=== PATIENT | female | born 1965 | race Caucasian/White ===

== ENCOUNTER 2016-05-01 19:37 | Observation (INO) ==
[2016-05-01 20:44] LABS: Immature Platelets 2.3 % (1.1-6.1); Mean Platelet Volume 8.8 fL (9.4-12.4); Segmented Neutrophils % 59.4 %
[2016-05-01 20:48] LABS: Basophils # 0.1 K/mcL (0.0-0.2); Basophils % 0.8 %; Eosinophils # 0.5 K/mcL (0.0-0.6); Hematocrit 36.2 % (35.3-44.9); Hemoglobin 12.2 g/dL (11.5-15.4); Immature Granulocytes % 0.3 % (0-4); Lymphocytes # 2.5 K/mcL (0.6-4.6); Lymphocytes % 27.2 %; Mean Corpuscular HGB Conc 33.7 g/dL (31.6-35.5); Mean Corpuscular Hemoglobin 32.7 pg (28.0-33.3); Mean Corpuscular Volume 97.1 fL (83.0-100.0); Monocytes # 0.7 K/mcL (0.0-1.3); Monocytes % 7.3 %; Neutrophils # 5.4 K/mcL (1.6-8.9); Platelet Count 309 K/mcL (140-400); Red Blood Count 3.73 M/mcL (3.82-4.97); Red Cell Distribution Width 13.3 % (11.5-14.5)
[2016-05-01 20:51] LABS: INR 1.2; Prothrombin Time 12.6 Seconds (9.4-12.1)
[2016-05-01 20:53] LABS: Activated Partial Thrombo Time 31.2 Seconds (26.0-36.0)
[2016-05-01 21:00] LABS: BUN/Creatinine Ratio 16 (6-26); Blood Urea Nitrogen 10 mg/dL (7-20); Calcium 8.7 mg/dL (8.6-10.8); Carbon Dioxide 24 mEq/L (19-29); Chloride 107 mEq/L (98-109); Glucose 90 mg/dL (70-99); Osmolality,Calculated 289 (280-300); Potassium 3.2 mEq/L (3.5-4.5); Sodium 140 mEq/L (136-145); eGFR For African Americans > 60 (> 60); eGFR For Non-African Americans > 60 (> 60)
[2016-05-01 21:16] LABS: Reactive Lymphocytes Present (Not Present)
[2016-05-01] MEDS: Nitroglycerin 0.4 MG TAB.SUBL SL PRN (21:23)
--- NOTE | 2016-05-01 22:35 | Emergency Department Note ---
Disposition Clinical Impression: Chest pain, rule out acute myocardial infarction Chest pain Qualifiers: Chest pain type: unspecified Qualified Code(s): R07.9 - Chest pain, unspecified Syncope Qualifiers: Syncope type: unspecified Qualified Code(s): R55 - Syncope and collapse Disposition: Admitted As Inpatient Condition: Good Time of Disposition: 22:44 Chest Pain HPI - General Chief Complaint: ED Chest Pain Stated Complaint: [id number] Time Seen by Provider: 05/01/16 20:12 Source: patient, EMS Limitations: no limitations Vital Signs Reviewed: Yes Nursing Notes Reviewed: Yes - History of Present Illness HPI Narrative: 50-year-old female presents with concerns of chest pain. Patient states that she had been feeling weak and fatigued over the past 3 days however prior to arrival she had an acute onset of of syncope at home which was associated with chest pain. After the pain the patient felt significantly weak and fatigued. Patient denies a history of cardiac disease. She does have a family history of early cardiac disease. She is a cigarette smoker and has a history of high blood pressure. Patient states that she was nauseated with the pain. She described being mildly short of breath but denied diaphoresis. Patient was not incontinent of urine and did not bite her tongue. She has no history of seizures in the past. No seizure-like activity seen by a significant other. Severity scale (1-10): 10 - Related Data Home Medications Medication Instructions Recorded Confirmed Buprenorphine HCl/Naloxone HCl 1 film SL BID 12/02/14 12/16/14 [Suboxone 8 mg-2 mg Sl Film] Lisinopril [Zestril] 20 mg PO DAILY 12/02/14 12/16/14 Metoprolol [Lopressor] 25 mg PO DAILY 12/13/14 12/16/14 Aspirin Enteric Coated [Aspirin EC] 81 mg PO DAILY 12/16/14 12/16/14 Fexofenadine/Pseudoephedrine 1 tab PO BID 12/16/14 12/16/14 [Bhakti-D 12 Hour Tablet] Previous Rx's Medication Instructions Recorded Ondansetron ODT [Zofran ODT] 4 mg SL Q6HR #20 tab.rapdis 12/19/14 Allergies Allergy/AdvReac Type Severity Reaction Status Date / Time acetaminophen [From Vicodin] Allergy Hives Verified 12/01/14 23:24 hydrocodone [From Vicodin] Allergy Hives Verified 12/01/14 23:24 naproxen [From Naprosyn] Allergy Hives Verified 12/01/14 23:24 tramadol [From Ultram] Allergy Hives Verified 12/01/14 23:24 muscle relaxers Allergy Hives Uncoded 12/01/14 23:24 All systems ED: reviewed and negative except as stated. Constitutional: Denies: fever Cardiovascular: Reports: chest pain, palpitations, syncope. Denies: dyspnea on exertion, orthopnea Respiratory: Denies: cough, dyspnea, wheezes, hemoptysis Gastrointestinal: Reports: nausea. Denies: abdominal pain, vomiting Genitourinary: Denies: urgency, dysuria Musculoskeletal: Denies: back pain, neck pain Integumentary: Denies: rash, abrasion Neurological: Denies: headache, weakness Psychiatric: Denies: anxiety, depression Chest Pain PMH - Past Medical History Medical history: Reports: CVA, GERD, hypertension, TIA Surgical history: Reports: appendectomy, , cholecystectomy Psychiatric history: Reports: no psych history AIR CARRIER INSPECTOR history: Reports: no AIR CARRIER INSPECTOR history - Social History Smoking Status: Current every day smoker Alcohol use: Reports: none Drug use: Reports: none Physical Exam General: Alert and in no acute distress Skin: Warm, dry, intact Head: Normocephalic and atraumatic Neck: Supple, trachea midline and no tenderness Cardiovascular: RRR, no murmur, normal perfusion Respiratory: CTAB, no wheezing, cough, or respiratory distress Musculoskeletal: Normal strength, no tenderness, swelling or deformity GI: Soft, nontender, nondistended. Bowel sounds present Neuro: A&O to person, place, time and situation. No focal deficits noted on exam Psychiatric: cooperative and appropriate mood and affect. - General Limitations: no limitations General appearance: alert, in no apparent distress Course Vital Signs Temperature 100.2 F H 05/01/16 19:39 Pulse Rate 93 05/01/16 19:39 Respiratory Rate 22 05/01/16 19:39 Blood Pressure 181/103 05/01/16 19:39 O2 Sat by Pulse Oximetry 97 05/01/16 19:39 Temperature 97.6 F 05/01/16 23:27 Pulse Rate 77 05/01/16 23:27 Respiratory Rate 14 05/01/16 23:27 Blood Pressure 156/88 05/01/16 23:27 O2 Sat by Pulse Oximetry 95 05/01/16 23:27 Oxygen Delivery Oxygen Delivery Room Air Chest Pain - Medical Records Medical records reviewed: Yes I reviewed the patient's medical records. - Lab Data Lab results reviewed: Yes I reviewed the patient's lab results. Result diagrams: 05/01/16 20:37 05/01/16 20:37 Lab Results 05/01/16 05/01/16 05/01/16 Range/Units 20:37 20:37 20:37 WBC 9.1 (4.3-11.1) K/mcL RBC 3.73 L (3.82-4.97) M/mcL Hgb 12.2 (11.5-15.4) g/dL Hct 36.2 (35.3-44.9) % MCV 97.1 (83.0-100.0) fL MCH 32.7 (28.0-33.3) pg MCHC 33.7 (31.6-35.5) g/dL RDW 13.3 (11.5-14.5) % Plt Count 309 (140-400) K/mcL MPV 8.8 L (9.4-12.4) fL Immature Gran % 0.3 (0-4) % Seg Neutrophils % 59.4 % Lymphocytes % 27.2 % Monocytes % 7.3 % Eosinophils % 5.0 % Basophils % 0.8 % Neutrophils # 5.4 (1.6-8.9) K/mcL Lymphocytes # 2.5 (0.6-4.6) K/mcL Monocytes # 0.7 (0.0-1.3) K/mcL Eosinophils # 0.5 (0.0-0.6) K/mcL Basophils # 0.1 (0.0-0.2) K/mcL Reactive Lymphocytes Present A (Not Present) Immature Plt Fraction 2.3 (1.1-6.1) % PT 12.6 H (9.4-12.1) Seconds INR 1.2 APTT 31.2 (26.0-36.0) Seconds D-Dimer 460 (0-500) ng/mLFEU Sodium 140 (136-145) mEq/L Potassium 3.2 L (3.5-4.5) mEq/L Chloride 107 (98-109) mEq/L Carbon Dioxide 24 (19-29) mEq/L BUN 10 (7-20) mg/dL Creatinine 0.63 (0.57-1.11) mg/dL Est GFR ( Amer) > 60 (> 60) Est GFR (Non-Af Amer) > 60 (> 60) BUN/Creatinine Ratio 16 (6-26) Glucose 90 (70-99) mg/dL Calculated Osmolality 289 (280-300) Calcium 8.7 (8.6-10.8) mg/dL Troponin I (0-0.03) ng/mL 05/01/16 Range/Units 20:37 WBC (4.3-11.1) K/mcL RBC (3.82-4.97) M/mcL Hgb (11.5-15.4) g/dL Hct (35.3-44.9) % MCV (83.0-100.0) fL MCH (28.0-33.3) pg MCHC (31.6-35.5) g/dL RDW (11.5-14.5) % Plt Count (140-400) K/mcL MPV (9.4-12.4) fL Immature Gran % (0-4) % Seg Neutrophils % % Lymphocytes % % Monocytes % % Eosinophils % % Basophils % % Neutrophils # (1.6-8.9) K/mcL Lymphocytes # (0.6-4.6) K/mcL Monocytes # (0.0-1.3) K/mcL Eosinophils # (0.0-0.6) K/mcL Basophils # (0.0-0.2) K/mcL Reactive Lymphocytes (Not Present) Immature Plt Fraction (1.1-6.1) % PT (9.4-12.1) Seconds INR APTT (26.0-36.0) Seconds D-Dimer (0-500) ng/mLFEU Sodium (136-145) mEq/L Potassium (3.5-4.5) mEq/L Chloride (98-109) mEq/L Carbon Dioxide (19-29) mEq/L BUN (7-20) mg/dL Creatinine (0.57-1.11) mg/dL Est GFR ( Amer) (> 60) Est GFR (Non-Af Amer) (> 60) BUN/Creatinine Ratio (6-26) Glucose (70-99) mg/dL Calculated Osmolality (280-300) Calcium (8.6-10.8) mg/dL Troponin I 0.01 (0-0.03) ng/mL - Radiology Data Radiology results reviewed: Yes I reviewed the patient's radiology results. - EKG Data EKG attestation: Yes I reviewed and interpreted this EKG. EKG results narrative: ECG - interpreted by ED physician. Rate 88, normal sinus rhythm, no STEMI, OK, QT intervals, and QRS within normal limits Heart Score - Score History: Moderately Suspicious EKG: Normal Age: 45-65 Risk Factors: Equal/Greater than 3 risk factor or history of atherosclerotic disease Troponin: Less than normal limit HEART Score Total: 4
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
[2016-05-02] MEDS ORDERED: D5% in 0.9% NACL w KCl 20 MEQ/1,000 ML MLS IVC SCH (01:30)
[2016-05-02 04:48] LABS: Alanine Aminotransferase 11 Units/L (0-55); Albumin 2.9 g/dL (3.5-5.0); Albumin/Globulin Ratio 1.2 (1.1-2.2); Alkaline Phosphatase 59 Units/L (38-126); Aspartate Amino Transferase 12 Units/L (5-34); BUN/Creatinine Ratio 15 (6-26); Bilirubin,Total 0.4 mg/dL (0.2-1.2); Blood Urea Nitrogen 9 mg/dL (7-20); Calcium 8.4 mg/dL (8.6-10.8); Carbon Dioxide 25 mEq/L (19-29); Chloride 111 mEq/L (98-109); Chol/HDL Ratio 3.3 (0-4.9); Cholesterol 125 mg/dL (< 200); Globulin 2.5 g/dL (2.4-3.5); Glucose 96 mg/dL (70-99); HDL Cholesterol 38 mg/dL (40-59); LDL Cholesterol,Calculated 73 mg/dL (0-99); Osmolality,Calculated 293 (280-300); Potassium 3.4 mEq/L (3.5-4.5); Sodium 142 mEq/L (136-145); Total Protein 5.4 g/dL (6.0-8.3); Triglycerides 70 mg/dL (< 150); eGFR For African Americans > 60 (> 60); eGFR For Non-African Americans > 60 (> 60)
[2016-05-02 05:05] LABS: Ethanol < 10 mg/dL (0-10)
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
[2016-05-02] MEDS ORDERED: Ondansetron 4 MG/2 ML VIAL IVP PRN (08:25)
[2016-05-02] MEDS: Aspirin Enteric Coated 81 MG Tablet PO SCH (09:52)
[2016-05-02] MEDS: *HR* Buprenorphine HCl 8 MG TAB.SUBL SL SCH ×2 (09:52→20:00)
[2016-05-02] MEDS: Lisinopril 20 MG TABLET PO SCH (09:52)
[2016-05-02] MEDS: *HR* Heparin 5,000 UNIT/ML VIAL SQ SCH ×2 (09:54→20:00)
--- NOTE | 2016-05-02 11:55 | Electrocardiograph Report ---
[facility] Test Date: 2016-05-01 Pat Name: Rosy Villasenor Department: 105 Room: 3B32 Gender: F Instrument Repairer: : 1965 Requested By: Young Jensen Order Number: [id number] Reading MD: Gerard Leahy MD Measurements Intervals [place] Rate: 88 P: 76 VT: 132 QRS: 64 QRSD: 92 T: 59 QT: 362 QTc: 407 Interpretive Statements SINUS RHYTHM Electronically Signed On 05-02-16 11:53:25 EST by Gerard Leahy MD
[2016-05-02 19:30] LABS: Amphetamine Screen,Urine Positive ng/mL (Cutoff=1000); Barbiturate Screen,Urine Negative ng/mL (Cutoff=200); Benzodiazepines Screen,Urine Negative ng/mL (Cutoff=200); Cannabinoid Screen,Urine Negative ng/mL (Cutoff = 50); Cocaine Screen,Urine Negative ng/mL (Cutoff= 300); Opiate Screen,Urine Negative ng/mL (Cutoff=300); Phencyclidine Screen,Urine Negative ng/mL (Cutoff=25)
[2016-05-02] MEDS: Nitroglycerin 0.4 MG TAB.SUBL SL PRN (20:00)
[2016-05-03 05:24] LABS: BUN/Creatinine Ratio 16 (6-26); Blood Urea Nitrogen 10 mg/dL (7-20); Calcium 8.4 mg/dL (8.6-10.8); Carbon Dioxide 24 mEq/L (19-29); Chloride 111 mEq/L (98-109); Glucose 76 mg/dL (70-99); Osmolality,Calculated 292 (280-300); Sodium 142 mEq/L (136-145); eGFR For African Americans > 60 (> 60); eGFR For Non-African Americans > 60 (> 60)
[2016-05-03] MEDS: *HR* Heparin 5,000 UNIT/ML VIAL SQ SCH (06:24)
--- NOTE | 2016-05-03 07:32 | ECHO - Doppler Report ---
Echocardiogram Name: Rosy Villasenor Date of Study: 05/02/2016 Date: 1965 Ht: 60.0 in Medical Record#: [id number] Age: 50 Wt: 101.0 lb Gender: Female BSA: 1.4 Order #: [id number] Location: [facility] Room #: 3B32 Reading Physician: Eladio Johansen MD, [facility] [place]: Idalia Dorsey Ordering Physician: Corrie Godfrey DO Primary Physician: None Indications: Syncope Impressions: Normal left ventricular size and systolic function, LVEF 60-65%. Normal left ventricular diastolic function. Normal right ventricular size and function. No significant valvular dysfunction. No evidence of pulmonary hypertension. Left Ventricular Wall Motion: Rest Echo Findings All wall segments showed normal motion. Findings: Study Quality * Technically adequate exam. ECG Findings * Normal sinus rhythm. Left Ventricle * Normal left ventricular size and systolic function, LVEF 60-65%. * Normal LV wall thickness. * Normal left ventricular diastolic function. Right Ventricle * Normal right ventricular size and function. Left Atrium * Normal left atrial size. Right Atrium * Normal right atrial size. Aorta * Normally sized aortic root. Pericardium * There is no pericardial effusion present. IVC * The IVC is not dilated. Aortic Valve * Aortic valve not well visualized. Appears trileaflet with mild sclerosis. * No aortic stenosis. * No aortic regurgitation. Mitral Valve * Normal mitral valve structure. * No mitral stenosis. * Trace mitral regurgitation. Tricuspid Valve * Normal tricuspid valve structure. * No tricuspid stenosis. * Trace tricuspid regurgitation. * No evidence of pulmonary hypertension. Pulmonic Valve * Pulmonic valve not well visualized. * No pulmonic stenosis. * No pulmonic regurgitation. History Hypertension History of Smoking Years 40 Packs 0.5 Family History of CAD 11/10/2012 a was performed. Measurements: BP: 124/ 81 2D Normal Values RVIDd: 2.10 cm IVSd: .90 cm 0.6 - 1.0 cm LVIDd: 3.90 cm 3.7 - 5.6 cm LVPWd: .90 cm 0.6 - 1.1 cm LVIDs: 2.60 cm 1.5 - 3.6 cm AO: 2.30 cm < 4.0 cm %FS: 33.30 cm >25 % LA volume: 26 Mitral Valve Peak E:.94 m/sec Peak A:.67 m/sec E/A Ratio:1.4 Tricuspid Valve TV Regurg Peak Grad: 16.00mmHg TV Regurg Peak [place]: 2.00m/sec Updated by Eladio Johansen MD, [facility] on 05/03/2016 7:27:14 AM electronically signed on 05/03/2016 7:28:04 AM with status of Final Wall Motion [place]: 1=Normal, 2=Hypokinesis, 3=Akinesis, 4=Dyskinesis, 5=Aneurysmal, 6=Hyperkinetic, X=Not Visualized (Blank)=Missing
[2016-05-03] MEDS: *HR* Buprenorphine HCl 8 MG TAB.SUBL SL SCH (10:36)
[2016-05-03] MEDS: Aspirin Enteric Coated 81 MG Tablet PO SCH (10:36)
[2016-05-03] MEDS: Lisinopril 20 MG TABLET PO SCH (10:36)
[2016-05-03 10:55] VITALS: BP 119/66
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
--- NOTE | 2016-05-03 18:19 | Carotid Imaging Report ---
Carotid Duplex Patient Name:Rosy Villasenor Order Number:[id number] Procedure Date:05/02/2016 Date:1965Age:50 yrs Gender:Female Lt BP:124 / 81 mmHg Rt.BP:111 / 73 mmHgHeart Rate: Location:[facility] Room #: [id number] [place] Painter:Idalia Dorsey Referring MD:Corrie Godfrey DO business continuity manager:None Reading MD:Phong De La Vega MD Primary Indications:syncope Risk Factors Yes/No Hypertension Yes Hx of CVA Yes Impressions: The right internal carotid artery has a 60-79% stenosis. The left internal carotid artery has a 60-79% stenosis. Recommendations: Risk factor reduction. Further evaluation recommended if clinically indicated. Follow-up carotid duplex in 1 year. After imaging the patient returned to their room. Findings Carotid Duplex: Right: The right proximal common carotid artery has a PSV of 118 cm/s and a EDV of 31 cm/s. There is nonstenotic plaque in the right mid common carotid artery with a PSV of 136 cm/s and a EDV of 43 cm/s. The right distal common carotid artery has a PSV of 93 cm/s and a EDV of 31 cm/s. There is nonstenotic plaque in the right bifurcation with a PSV of 105 cm/s and a EDV of 39 cm/s. There is 60-79% stenosis in the right proximal internal carotid artery with a PSV of 156 cm/s and a EDV of 50 cm/s. There is smooth heterogeneous plaque. There is 60-79% stenosis in the right mid internal carotid artery with a PSV of 155 cm/s and a EDV of 54 cm/s. There is smooth heterogeneous plaque. The right distal internal carotid artery has a PSV of 114 cm/s and a EDV of 49 cm/s. There is nonstenotic plaque in the right eca with a PSV of 162 cm/s and a EDV of 22 cm/s. The right vertebral artery has a PSV of 75 cm/s and a EDV of 31 cm/s. Left: The left proximal common carotid artery has a PSV of 100 cm/s and a EDV of 29 cm/s. The left mid common carotid artery has a PSV of 110 cm/s and a EDV of 37 cm/s. The left distal common carotid artery has a PSV of 119 cm/s and a EDV of 35 cm/s. There is 60-79% stenosis in the left bifurcation with a PSV of 151 cm/s and a EDV of 46 cm/s. There is smooth heterogeneous plaque. There is nonstenotic plaque in the left proximal internal carotid artery with a PSV of 118 cm/s and a EDV of 42 cm/s. There is nonstenotic plaque in the left mid internal carotid artery with a PSV of 129 cm/s and a EDV of 48 cm/s. The left distal internal carotid artery has a PSV of 98 cm/s and a EDV of 31 cm/s. The left eca has a PSV of 117 cm/s and a EDV of 20 cm/s. The left vertebral artery has a PSV of 19 cm/s and a EDV of 5 cm/s. The left distal internal carotid and left vertebral arteries were not well visualized. Prior Study: No prior study available for comparison. Carotid Results Right PSV EDV Assessment Proximal CCA 118 31 Normal Mid CCA 136 43 Non Stenotic Plaque Distal CCA 93 31 Normal Bifurcation 105 39 Non Stenotic Plaque Proximal ICA 156 50 60-79% stenosis Mid ICA 155 54 60-79% stenosis Distal ICA 114 49 Normal ECA 162 22 Non Stenotic Plaque Vertebral Artery 75 31 Normal Left PSV EDV Assessment Proximal CCA 100 29 Normal Mid CCA 110 37 Normal Distal CCA 119 35 Normal Bifurcation 151 46 60-79% stenosis Proximal ICA 118 42 Non Stenotic Plaque Mid ICA 129 48 Non Stenotic Plaque Distal ICA 98 31 Not Well Visualized ECA 117 20 Normal Vertebral Artery 19 5 Not Well Visualized Ratio's Right ICA/CCA Ratio: 1.15 ICA/CCA Values: 156/136 Left ICA/CCA Ratio: 1.17 ICA/CCA Values: 129/110 Updated by Phong De La Vega MD on 05/03/2016 6:14:52 PM electronically signed on 05/03/2016 6:15:16 PM with status of Final
== END 2016-05-03 16:14 | disposition home or self-care (01) ==
LOC: 3BNU 19:37 → EMEROO 19:37 → 3BNU 23:16
PROVIDERS: ADMIT Internal Medicine; ATTEND Nurse Practitioner Family

== ENCOUNTER 2016-06-23 13:42 | Observation (INO) ==
[2016-06-23] MEDS ORDERED: 0.9 % Sodium Chloride 500 ML IVC ONE (14:05)
--- NOTE | 2016-06-23 14:37 | Emergency Department Note ---
Disposition Clinical Impression: Syncope and collapse Chest pain Qualifiers: Chest pain type: unspecified Qualified Code(s): R07.9 - Chest pain, unspecified Disposition: Admitted As Inpatient Condition: Fair Time of Disposition: 17:24 Chest Pain HPI - General Chief Complaint: ED Shortness of Breath/Dyspnea Stated Complaint: Chest Pain Source: patient Limitations: no limitations Vital Signs Reviewed: Yes Nursing Notes Reviewed: Yes - History of Present Illness HPI Narrative: Patient is a 51-year-old female who presents to [facility] ED with a chief complaint of nausea, dizziness, syncopal episode, chest pain. States she has had these symptoms intermittently over the last 2 days. Patient states she passed out yesterday and earlier today. She was sitting on the couch when her boyfriend's office. Patient is on Suboxone for drug rehabilitation from prescription drug abuse. Patient describes her dizziness as the room spinning. States her chest pain is sharp and central. No chest pain at this time. Patient is unsure if she felt previously when she passed out. Is having some posterior head and neck pain. Pt complaint: chest pain Onset (ago): hour(s) Duration: intermittent Onset: during rest Pain Location: substernal Severity: moderate Severity scale (1-10): 6 Quality: sharp Pain Radiation: none Improves with: nothing Worsens with: nothing Associated symptoms: Reports: nausea, syncope. Denies: vomiting, dyspnea, fever , cough - Related Data Home Medications Medication Instructions Recorded Confirmed Buprenorphine HCl/Naloxone HCl 1 film SL BID 12/02/14 06/23/16 [Suboxone 8 mg-2 mg Sl Film] Aspirin [Lo-Dose Aspirin EC] 81 mg PO DAILY 06/23/16 06/23/16 Metoprolol [Lopressor] 25 mg PO BID 06/23/16 06/23/16 Omeprazole [PriLOSEC] 40 mg PO DAILY 06/23/16 06/23/16 Previous Rx's Medication Instructions Recorded Lisinopril [Zestril] 20 mg PO DAILY #30 tablet 05/03/16 Allergies Allergy/AdvReac Type Severity Reaction Status Date / Time acetaminophen [From Vicodin] Allergy Hives Verified 12/01/14 23:24 hydrocodone [From Vicodin] Allergy Hives Verified 12/01/14 23:24 naproxen [From Naprosyn] Allergy Hives Verified 12/01/14 23:24 tramadol [From Ultram] Allergy Hives Verified 12/01/14 23:24 muscle relaxers Allergy Hives Uncoded 12/01/14 23:24 All systems ED: reviewed and negative except as stated. Chest Pain PMH - Past Medical History Medical history: Reports: CVA, GERD, hypertension, TIA, other Surgical history: Reports: appendectomy, , cholecystectomy Psychiatric history: Reports: no psych history MANAGER OF INTERNATIONAL history: Reports: no MANAGER OF INTERNATIONAL history - Social History Smoking Status: Current every day smoker Alcohol use: Reports: none Drug use: Reports: none Physical Exam - General Limitations: no limitations General appearance: alert - Head Head exam: atraumatic, normocephalic, normal inspection - Eye Eye exam: Present: normal appearance, PERRL, EOMI - ENT ENT exam: normal exam, normal oropharynx, mucous membranes moist - Neck Neck exam: Present: trachea midline, tenderness - Chest Chest inspection: Present: normal inspection, symmetric chest wall rise - Respiratory Respiratory exam: Present: normal lung sounds bilaterally - Cardiovascular Cardiovascular exam: Present: regular rate, normal rhythm, normal heart sounds - Abdominal Exam Abdominal exam: Present: soft, Non-Tender. Absent: tenderness, distention, guarding, rebound, rigidity - Extremities Exam Extremities exam: Present: normal inspection, full ROM. Absent: tenderness, pedal edema - Back Exam Back exam: Present: normal inspection, full ROM. Absent: tenderness - Neurological Exam Neurological exam: Present: alert, oriented X3 - Psychiatric Psychiatric exam: Present: normal affect, normal mood - Skin Skin exam: Present: warm, dry, intact, normal color Course Course Narrative: Patient seen and examined. Syncopal episodes over the last couple days and chest pain. Since patient is unsure if she fell or not and has some pain in the back of her head and neck, we will go ahead and CT head and cervical spine. We will do a cardiac workup. - Reevaluation(s) Reevaluation #1: Lab work appears unremarkable. Due to her syncopal episodes and history of carotid stenosis, we will go ahead and admit the workup. I spoke with hospitalist Myra Bro who has accepted patient for admission. Time: 17:23 Vital Signs Temperature 97.9 F 06/23/16 13:45 Pulse Rate 69 06/23/16 13:45 Respiratory Rate 16 06/23/16 13:45 Blood Pressure 93/60 06/23/16 13:45 O2 Sat by Pulse Oximetry 100 06/23/16 13:45 Temperature 97.4 F L 06/23/16 17:50 Pulse Rate 71 06/23/16 17:50 Respiratory Rate 14 06/23/16 17:50 Blood Pressure 124/81 06/23/16 17:50 O2 Sat by Pulse Oximetry 96 06/23/16 17:50 Oxygen Delivery Oxygen Delivery Nasal Cannula Chest Pain - Medical Records Medical records reviewed: Yes I reviewed the patient's medical records. - Lab Data Lab results reviewed: Yes I reviewed the patient's lab results. Result diagrams: 06/23/16 14:45 06/23/16 14:45 Lab Results 06/23/16 06/23/16 06/23/16 Range/Units 14:45 14:45 14:45 WBC 7.5 (4.3-11.1) K/mcL RBC 3.45 L (3.82-4.97) M/mcL Hgb 11.1 L (11.5-15.4) g/dL Hct 34.0 L (35.3-44.9) % MCV 98.6 (83.0-100.0) fL MCH 32.2 (28.0-33.3) pg MCHC 32.6 (31.6-35.5) g/dL RDW 12.2 (11.5-14.5) % Plt Count 243 (140-400) K/mcL MPV 9.6 (9.4-12.4) fL Immature Gran % 0.4 (0-4) % Seg Neutrophils % 65.2 % Lymphocytes % 22.5 % Monocytes % 10.7 % Eosinophils % 0.7 % Basophils % 0.5 % Neutrophils # 4.9 (1.6-8.9) K/mcL Lymphocytes # 1.7 (0.6-4.6) K/mcL Monocytes # 0.8 (0.0-1.3) K/mcL Eosinophils # 0.1 (0.0-0.6) K/mcL Basophils # 0.0 (0.0-0.2) K/mcL Immature Plt Fraction 3.3 (1.1-6.1) % Sodium 140 (136-145) mEq/L Potassium 3.7 (3.5-4.5) mEq/L Chloride 107 (98-109) mEq/L Carbon Dioxide 25 (19-29) mEq/L BUN 15 (7-20) mg/dL Creatinine 0.99 (0.57-1.11) mg/dL Est GFR ( Amer) > 60 (> 60) Est GFR (Non-Af Amer) 59 L (> 60) BUN/Creatinine Ratio 15 (6-26) Glucose 106 H (70-99) mg/dL Calculated Osmolality 291 (280-300) Calcium 8.7 (8.6-10.8) mg/dL Troponin I 0.01 (0-0.03) ng/mL - Radiology Data Radiology results reviewed: Yes I reviewed the patient's radiology results. Chest X-Ray 06/23/16 14:05 IMPRESSION: Negative portable exam D/ / Pola Mcfadden MD / Pola Mcfadden MD Interpreting Provider: Pola Mcfadden MD Cervical Spine CT 06/23/16 14:06 IMPRESSION: No acute abnormality of the cervical spine. Straightening of the cervical spine may reflect positioning or muscular spasm. D/ / Pola Mcfadden MD / Pola Mcfadden MD Interpreting Provider: Pola Mcfadden MD Head CT 06/23/16 14:06 IMPRESSION: No acute intracranial abnormality. Acute sinusitis D/ / Pola Mcfadden MD / Pola Mcfadden MD Interpreting Provider: Pola Mcfadden MD - EKG Data EKG attestation: Yes I reviewed and interpreted this EKG. EKG results narrative: EKG done at 1350 shows normal sinus rhythm with a rate of [address] elevation or depression. Normal axis. EKG unchanged from prior EKG done 2016 Heart Score - Score History: Slightly Suspicious EKG: Normal Age: 45-65 Risk Factors: 1-2 risk factors Troponin: Less than normal limit HEART Score Total: 2 Attestation Statement - Attestation Attestation: Patient was seen with resident physician. I reviewed the history, physical, assessment and plan, and agree with the findings. I also personally evaluated this patient and had [id number] time with this patient. 51-year-old female presents to the emergency Department chief complaint of syncope, dizziness, weakness, and mild sharp chest pains. Patient states it happened both yesterday and today. She got weak and dizzy and passed out. She is not sure for how long. She has had occasional sharp twinges of chest discomfort which she does not think is anything major. She denies fevers chills nausea or vomiting. Patient is on Suboxone and appears somnolent with pinpoint pupils. On examination ENT is unremarkable pupils are pinpoint. Heart normal. Lungs normal. Abdomen soft and nontender. Extremities are unremarkable. Neurologically patient's easily arousable answers all questions appropriately and neurologically is intact with no focal neurologic deficits. We will do syncopal B workup including cardiac components to that. Likely admitted to the hospital for completion of syncopal workup. Patient has been admitted once before for similar episode. She said she has had carotids that showed some stenosis. Patient was given IV fluids in hopes of improving her symptoms, it was unsuccessful. Hospitalist was notified of need for admission. I agree with resident physician assessment and plan.
[2016-06-23 14:53] LABS: Basophils % 0.5 %; Eosinophils # 0.1 K/mcL (0.0-0.6); Eosinophils % 0.7 %; Hemoglobin 11.1 g/dL (11.5-15.4); Immature Granulocytes % 0.4 % (0-4); Immature Platelets 3.3 % (1.1-6.1); Lymphocytes # 1.7 K/mcL (0.6-4.6); Lymphocytes % 22.5 %; Mean Corpuscular HGB Conc 32.6 g/dL (31.6-35.5); Mean Corpuscular Hemoglobin 32.2 pg (28.0-33.3); Mean Corpuscular Volume 98.6 fL (83.0-100.0); Mean Platelet Volume 9.6 fL (9.4-12.4); Monocytes # 0.8 K/mcL (0.0-1.3); Monocytes % 10.7 %; Neutrophils # 4.9 K/mcL (1.6-8.9); Platelet Count 243 K/mcL (140-400); Red Blood Count 3.45 M/mcL (3.82-4.97); Red Cell Distribution Width 12.2 % (11.5-14.5); Segmented Neutrophils % 65.2 %
[2016-06-23 15:09] LABS: BUN/Creatinine Ratio 15 (6-26); Blood Urea Nitrogen 15 mg/dL (7-20); Calcium 8.7 mg/dL (8.6-10.8); Carbon Dioxide 25 mEq/L (19-29); Chloride 107 mEq/L (98-109); Glucose 106 mg/dL (70-99); Osmolality,Calculated 291 (280-300); Potassium 3.7 mEq/L (3.5-4.5); Sodium 140 mEq/L (136-145); eGFR For African Americans > 60 (> 60); eGFR For Non-African Americans 59 (> 60)
[2016-06-23] MEDS ORDERED: Ondansetron 4 MG/2 ML VIAL IVP PRN (21:48)
[2016-06-23] MEDS ORDERED: Naloxone 0.4 MG/ML INJ IVP PRN (21:48)
--- NOTE | 2016-06-23 22:07 | Internal Med History&Physical ---
Date of Encounter: 06/23/16 Time of Encounter: 21:30 Assessment and Plan (1) Syncope Current visit: No Status: Acute 1. Transient syncopal episodes off and on since April . She did have an echo that time which was normal she also underwent carotid Dopplers which did not show 65-70% stenosis of internal arteries bilaterally. We will consult vascular 2 obtain orthostatics 3 IV fluids 4. Hold lisinopril for now give metoprolol with parameters to avoid reflexive tachycardia 5 we will obtain tox screen as well as a urinalysis to check for UTI 6 check cortisol level in a.m. to rule out adrenal insufficiency no check her TSH 7 placed on fall precautions Qualifiers: Syncope type: unspecified Qualified Code(s): R55 - Syncope and collapse (2) Chest pain Current visit: Yes Status: Acute 1 patient has been experiencing intermittent chest pain off and on since April. Present EKG is normal sinus rhythm first cardiac troponin is negative. I did not feel this is cardiac however due to her risk factors she smokes high blood pressure drug user we will cycle cardiac troponins. She had a complete cardiac workup in April echo with EF of 60/65% normal diastolic function. She follows with cardiology as outpatient and U outpatient follow- ups and will consult cardiology as needed 2 continuous cardiac monitoring 3 cardiac diet 4 hours patient to stop smoking Qualifiers: Chest pain type: unspecified Qualified Code(s): R07.9 - Chest pain, unspecified (3) HTN (hypertension) Current visit: No Status: Chronic Qualifiers: Hypertension type: essential hypertension Qualified Code(s): I10 - Essential (primary) hypertension (4) History of drug abuse Current visit: Yes Status: Acute 1 A she has a past history of drug abuse she is presently on Suboxone. She denies any recent drug use or IV drug use. We will obtain a tox screen 2 continue Suboxone (5) Tobacco abuse Current visit: Yes Status: Acute 1 half pack a day smoker encouraged patient stopped smoking nicotine patch Internal Medicine - H&P: HPI Chief complaint: syncope CP Admitted From: Emergency Dept Plans for Post Hospital Care: Home History of present illness: Ms. Villasenor is a 51 year old female past medical history CVA (2000) with no deficits GERD hypertension narcotic abuse and tobacco abuse. The patient has been experiencing chest pain as well as syncopal episodes off and on since April. Her last admission in urinary she had extensive workup with an cardiac echo carotid Dopplers and cardiac enzymes. Cardiac echo showed a EF of 60-65% with normal diastolic function. Carotid Dopplers revealed right internal coronary artery 60-65% stenosis left internal carotid artery 60-79% stenosis cardiac enzymes were negative. Her tox screen was positive for benzodiazepine She was advised to follow-up with cardiology and vascular. Today the patient was removing laundry from the dryer she stood up and experienced an episode of dizziness in which she felt the room was spinning as well as sharp central chest pain she felt that she was going to pass out and felt short of breath.She sat down and the dizziness and chest pain stopped. Afterwards she did experience some nausea and had 3 episodes of emesis. He presented to the ER for further evaluation. According to records. Lab work was unremarkable cardiac pattern and was 0.01 chest x-ray was negative for any cardiopulmonary abnormalities the patient was complaining of neck pain as well as headache however she denies striking her head CT was obtained and cervical CT was negative as well as a head CT. EKG revealed normal sinus rhythm. She has been admitted for further workup and evaluation. Presently the patient denies any chest pain, dizziness nausea palpitations or shortness of breath She does complain of headache. Upon physical assessment patient does have a raspy voice at times speaks in a whisper she states this has been going on since April. He appears frail and emaciated. She has experienced a 70 pound weight loss since January, at t that time she is experiencing depression. The patient has a past history of drug abuse she states she uses "painkillers" She denies any recent drug use or any IV drug use. She was recently started on Suboxone on May 18 She last filled her prescription on June 14 She cannot tell me the name of the physician that prescribed her Suboxone. I did not note any track parson on her body She states that she goes to a drug rehabilitation clinic. Presently she is hemodynamically stable I reviewed this case with Dr. Thomson who agrees with plan Past Med Surg Social Fam HX - Past Medical History Medical history: CVA, GERD, hypertension, TIA, other Psychiatric history: no psych history - Past Surgical History Surgical History: appendectomy, , cholecystectomy - Social History Smoking Status: Current every day smoker Packs per day: 1 Smokeless Tobacco Status: No Alcohol use: none Drug use: none - Family History Father Living Status: Hx Family Cancer: Yes Daughter Living Status: Still Living Hx Family Cardiac Disorders: Yes Hx Family Respiratory Disorders: Yes Hx Family Cancer: Yes Hx Family GI Disorders: Yes Hx Family Endocrine Disorder: Yes Hx Family Neuromuscular Disorders: No Hx Family Neurologic Disorders: No Hx Family HEENT Disorders: Yes Hx Family Autoimmune Disorders: No Mother Living Status: Hx Family Cardiac Disorders: Yes Hx Family Cancer: Yes Internal Medicine - H&P: Meds Buprenorphine HCl/Naloxone HCl [Suboxone 8 mg-2 mg Sl Film] 1 film SL BID [History] Lisinopril [Zestril] 20 mg PO DAILY #30 tablet 05/03/16 [Rx] Aspirin [Lo-Dose Aspirin EC] 81 mg PO DAILY 06/23/16 [History] Metoprolol [Lopressor] 25 mg PO BID 06/23/16 [History] Omeprazole [PriLOSEC] 40 mg PO DAILY 06/23/16 [History] Allergies acetaminophen [From Vicodin] Allergy (Verified 12/01/14 23:24) Hives hydrocodone [From Vicodin] Allergy (Verified 12/01/14 23:24) Hives naproxen [From Naprosyn] Allergy (Verified 12/01/14 23:24) Hives tramadol [From Ultram] Allergy (Verified 12/01/14 23:24) Hives muscle relaxers Allergy (Uncoded 12/01/14 23:24) Hives All Systems PM: A 10-system review of systems was performed and is negative for pertinent findings except as documented above in the HPI. - Constitutional Constitutional: anorexia, weight loss - EENT Nose, mouth and throat: hoarseness - Cardiovascular Cardiovascular ROS IM: chest pain, dyspnea, lightheadedness, syncope - Respiratory Respiratory: cough - Gastrointestinal Gastrointestinal: no abdominal pain, no diarrhea, no hematemesis, no hematochezia, no melena, no nausea, no vomiting - Genitourinary Genitourinary: no change in urinary stream, no dysuria, no flank pain, no hematuria - Neurological Neurological ROS: headache(s) - Constitutional Vitals: Temp Pulse Resp BP Pulse Ox 98.1 F 71 14 114/69 100 06/23/16 19:15 06/23/16 19:15 06/23/16 19:15 06/23/16 19:15 06/23/16 19:15 General appearance: Present: cachectic, A&O X 3 - Head Head exam: Present: atraumatic, normocephalic - Eye Eye exam: Present: PERRL, conjuntiva pink, sclera anicteric Pupils: Present: PERRL - Neck Neck exam general surgery: Present: supple, trachea midline. Absent: lymphadenopathy - Respiratory Respiratory exam: Present: CTAB. Absent: accessory muscle use, rales, rhonchi, wheezes - Cardiovascular Cardiovascular exam: Present: RRR, +S1, +S2. Absent: diastolic murmur, gallop, rubs, systolic murmur - GI/Abdominal GI/Abdominal exam: Present: normal bowel sounds, soft, no peritoneal signs. Absent: distended, tenderness - Extremities Exam Extremities exam: Present: warm, radial pulses palpable and symetrical. Absent : calf tenderness, cyanotic, pedal edema - Neurological Exam Neurological exam: Present: CN II-XII intact, oriented X3, no focal deficits. Absent: pronater drift, facial droop, speech deficit - Skin Skin exam: Present: dry, intact Internal Med - H&P Results - Labs CBC & Chem 7: 06/23/16 14:45 06/23/16 14:45 - EKG Data EKG shows normal: sinus rhythm - EKG Data Prior EKG available for review: yes When compared to previous EKG: there is no significant change - Diagnostic Studies Chest x-ray Additional comments: Chest X-Ray 06/23/16 14:05 IMPRESSION: Negative portable exam D/ / Pola Mcfadden MD / Pola Mcfadden MD Interpreting Provider: Pola Mcfadden MD Cervical Spine CT 06/23/16 14:06 IMPRESSION: No acute abnormality of the cervical spine. Straightening of the cervical spine may reflect positioning or muscular spasm. D/ / Pola Mcfadden MD / Pola Mcfadden MD Interpreting Provider: Pola Mcfadden MD Head CT 06/23/16 14:06 IMPRESSION: No acute intracranial abnormality. Acute sinusitis D/ / Pola Mcfadden MD / Pola Mcfadden MD Interpreting Provider: Pola Mcfadden MD - VTE Reasons for not Prescribing Prophylaxis: Treatment not Indicated - Low risk for VTE
[2016-06-23] MEDS: *HR* Buprenorphine HCl 8 MG TAB.SUBL SL SCH (22:37)
[2016-06-23] MEDS: Ibuprofen 400 MG TABLET PO PRN (22:37)
[2016-06-23] MEDS: 0.9 % Sodium Chloride 1,000 ML IVC SCH (22:46)
[2016-06-23] MEDS: Nicotine 14 MG PATCH.TD24 TD SCH (23:28)
[2016-06-24 04:08] LABS: Bilirubin,Urine Negative (Negative); Blood,Urine Small (Negative); Clarity,Urine Cloudy (Clear); Color,Urine Yellow (Yellow); Glucose,Urine (UA) Normal (Normal); Ketones,Urine Negative (Negative); Leukocyte Esterase,Urine Negative (Negative); Nitrite,Urine Negative (Negative); Protein,Urine 30 mg/dL (Neg-Trace); Specific Gravity,Urine 1.025 (1.010-1.025); Urobilinogen,Urine Normal (Normal)
[2016-06-24 04:10] LABS: Bacteria,Urine None Seen per hpf (None-Few); Hyaline Casts,Urine Moderate per lpf (None-Few); Squamous Epithelial Cell,Urine Many per lpf (None-Few)
[2016-06-24 04:59] LABS: BUN/Creatinine Ratio 27 (6-26); Blood Urea Nitrogen 20 mg/dL (7-20); Calcium 9.3 mg/dL (8.6-10.8); Carbon Dioxide 30 mEq/L (19-29); Chloride 107 mEq/L (98-109); Chol/HDL Ratio 3.4 (0-4.9); Cholesterol 116 mg/dL (< 200); Glucose 79 mg/dL (70-99); HDL Cholesterol 34 mg/dL (40-59); LDL Cholesterol,Calculated 56 mg/dL (0-99); Osmolality,Calculated 296 (280-300); Potassium 3.6 mEq/L (3.5-4.5); Sodium 142 mEq/L (136-145); Triglycerides 129 mg/dL (< 150); eGFR For African Americans > 60 (> 60); eGFR For Non-African Americans > 60 (> 60)
[2016-06-24 05:07] LABS: Basophils % 0.7 %; Eosinophils # 0.3 K/mcL (0.0-0.6); Eosinophils % 5.6 %; Hematocrit 34.4 % (35.3-44.9); Hemoglobin 11.4 g/dL (11.5-15.4); Immature Granulocytes % 0.2 % (0-4); Immature Platelets 3.4 % (1.1-6.1); Lymphocytes # 2.4 K/mcL (0.6-4.6); Lymphocytes % 41.4 %; Mean Corpuscular HGB Conc 33.1 g/dL (31.6-35.5); Mean Corpuscular Hemoglobin 31.9 pg (28.0-33.3); Mean Corpuscular Volume 96.4 fL (83.0-100.0); Monocytes # 0.6 K/mcL (0.0-1.3); Monocytes % 10.4 %; Neutrophils # 2.4 K/mcL (1.6-8.9); Platelet Count 234 K/mcL (140-400); Red Blood Count 3.57 M/mcL (3.82-4.97); Red Cell Distribution Width 12.1 % (11.5-14.5); Segmented Neutrophils % 41.7 %
--- NOTE | 2016-06-24 08:33 | Internal Med Progress Note ---
<Hina Grace - Last Filed: 06/24/16 11:30> Date of Encounter: 06/24/16 Time of Encounter: 08:32 - Assessment and plan (1) Syncope Current Visit: No Status: Acute Assessment and plan: Patient has been experiencing syncopal episodes intermittently since April. Most recent episode described as feeling the room spinning when standing up with associated CP, N/V. ECHO 05/02/16: EF of 60-65% with normal diastolic function. Carotid Duplex 05/02/16: right internal coronary artery 60-65% stenosis; left internal carotid artery 60-79% stenosis CT Head: negative Patient has noted a approximate 70 pound weigh loss since January 2016. The patient notes she has been having episodes of hypotension at home and has not been taking her BP meds every day. Hypotension may be a source of her dizziness. Patient also started on suboxone in May secondary to opioid abuse. The cause of her syncope has multiple potential contributing factors: BP meds, suboxone use, weight loss, hypovolemia, etc. Plan: -Vascular Surgery consulted: patient was scheduled to see Dr. De La Vega today. Discussed case on the phone with him. He will see the patient and suggests continuing syncope workup. -Syncope workup: CT negative, ECHO and Carotid duplex performed 05/02/16. UA negative, TSH 2.61, Corisol level pending. Will order MRI of the brain today for further workup. -Orthostatic vitals pending -Continue IV fluids Qualifiers: Syncope type: unspecified Qualified Code(s): R55 - Syncope and collapse (2) HTN (hypertension) Current Visit: No Status: Chronic Assessment and plan: Patient was previously on lisinopril and metoprolol at home. Hypotensive on admission, lisinopril has been held and metoprolol 25mg BID given. BP stable currently Hypotension secondary to mediation use could be a cause of her syncope. Plan: -Continue to monitor BP -Hold lisinopril for now, continue metoprolol 25mg BID Qualifiers: Hypertension type: essential hypertension Qualified Code(s): I10 - Essential (primary) hypertension (3) Chest pain Current Visit: Yes Status: Acute Assessment and plan: Patient denies CP today. Troponin negative x3 Qualifiers: Chest pain type: unspecified Qualified Code(s): R07.9 - Chest pain, unspecified (4) History of drug abuse Current Visit: Yes Status: Acute Assessment and plan: A she has a past history of drug abuse she is presently on Suboxone. She denies any recent drug use or IV drug use. Plan: -urine tox screen positive for amphetamines, negative for opioids -continue Suboxone (5) Tobacco abuse Current Visit: Yes Status: Acute Assessment and plan: 1 PPD smoker Plan: -nicotine patch -encourage smoking cessation (6) Hoarseness of voice Current Visit: Yes Status: Acute Assessment and plan: Ongoing since April, patient should have ENT referal at discharge Encourage smoking cessation - Subjective Interval history: Patient seen and examined. She denies episodes of dizziness while lying in bed. She does experience dizziness when she is ambulating to the bathroom. She became dizzy while I was examining her EOM. She describes the dizziness as the room or herself spinning. She states that she has felt cold all night. She denies SOB, CP, abdominal pain, nausea, vomiting, fevers. - Constitutional Vitals: Temp Pulse Resp BP Pulse Ox 97.7 F 74 20 110/64 100 06/24/16 07:11 06/24/16 07:11 06/24/16 07:11 06/24/16 07:11 06/24/16 07:11 General appearance: Present: cachectic, A&O X 3, pleasant, no acute distress - Head Head exam: Present: atraumatic, normocephalic - Eye Eye exam: Present: PERRL, conjuntiva pink, sclera anicteric - ENT ENT exam: Present: mucous membranes dry - Neck Neck exam general surgery: Present: supple, trachea midline. Absent: lymphadenopathy - Respiratory Respiratory exam: Present: CTAB. Absent: accessory muscle use, rales, rhonchi, wheezes - Cardiovascular Cardiovascular exam: Present: RRR, +S1, +S2. Absent: diastolic murmur, gallop, rubs, systolic murmur - GI/Abdominal GI/Abdominal exam: Present: normal bowel sounds, soft, no peritoneal signs. Absent: distended, tenderness - Extremities Exam Extremities exam: Present: normal capillary refill, warm, radial pulses palpable and symetrical. Absent: calf tenderness, cyanotic, pedal edema, tenderness - Neurological Exam Neurological exam: Present: no focal deficits. Absent: motor sensory deficit, facial droop, speech deficit Additional comments: hoarseness noted - Psychiatric Psychiatric exam: Present: normal affect, normal mood - Skin Skin exam: Present: dry, intact. Absent: rash Internal Medicine: Result - Labs CBC & Chem 7: 06/24/16 03:59 06/24/16 03:59 Labs: Short CBC 06/24/16 Range/Units 03:59 WBC 5.8 (4.3-11.1) K/mcL Hgb 11.4 L (11.5-15.4) g/dL Hct 34.4 L (35.3-44.9) % Plt Count 234 (140-400) K/mcL Neutrophils # 2.4 (1.6-8.9) K/mcL BMP 06/24/16 03:59 Sodium 142 Potassium 3.6 Chloride 107 Carbon Dioxide 30 H BUN 20 Creatinine 0.75 Glucose 79 Calcium 9.3 Cardiac Enzymes 06/23/16 06/24/16 Range/Units 22:09 03:59 Troponin I 0.00 0.00 (0-0.03) ng/mL Urine 06/24/16 Range/Units 04:00 Urine Color Yellow (Yellow) Urine Clarity Cloudy A (Clear) Urine pH 6.0 (5.0-8.0) pH Units Ur Specific [place] 1.025 (1.010-1.025) Urine Protein 30 H (Neg-Trace) mg/dL Urine Glucose (UA) Normal (Normal) mg/dL - VTE Reasons for not Prescribing Prophylaxis: Treatment not Indicated - Low risk for VTE Consult Discharge Plan - Plan Referrals: Neil Rubio MD [Primary Care Provider] - <Win Rodrigez - Last Filed: 06/24/16 18:15> - Constitutional Vitals: Temp Pulse Resp BP Pulse Ox 97.8 F 70 17 126/78 97 06/24/16 16:11 06/24/16 16:11 06/24/16 16:11 06/24/16 16:11 06/24/16 16:11 Internal Medicine: Result - Labs CBC & Chem 7: 06/24/16 03:59 06/24/16 03:59 Labs: Short CBC 06/24/16 Range/Units 03:59 WBC 5.8 (4.3-11.1) K/mcL Hgb 11.4 L (11.5-15.4) g/dL Hct 34.4 L (35.3-44.9) % Plt Count 234 (140-400) K/mcL Neutrophils # 2.4 (1.6-8.9) K/mcL BMP 06/24/16 03:59 Sodium 142 Potassium 3.6 Chloride 107 Carbon Dioxide 30 H BUN 20 Creatinine 0.75 Glucose 79 Calcium 9.3 Cardiac Enzymes 06/23/16 06/24/16 Range/Units 22:09 03:59 Troponin I 0.00 0.00 (0-0.03) ng/mL Urine 06/24/16 Range/Units 04:00 Urine Color Yellow (Yellow) Urine Clarity Cloudy A (Clear) Urine pH 6.0 (5.0-8.0) pH Units Ur Specific [place] 1.025 (1.010-1.025) Urine Protein 30 H (Neg-Trace) mg/dL Urine Glucose (UA) Normal (Normal) mg/dL - Impressions Impressions Brain MRI 06/24/16 09:03 IMPRESSION: 1. No acute intracranial abnormality. 2. Sequela of minimal chronic microvascular ischemic changes. 3. Fritz paranasal sinus mucosal disease with bilateral maxillary sinus air-fluid levels compatible with acute sinusitis. D/ / Shahana Alvarez MD / Shahana Alvarez MD Interpreting Provider: Shahana Alvarez MD - Attending Attestation I examined this patient and my medical decision-making was reviewed with the PASSENGER CONDUCTOR/PA/Advanced Practice Nurse/Resident Physician. I agree with the documented findings, disposition and treatment plan as described except to the extent set forth below. will follow recommendations from vascular surg.
[2016-06-24] MEDS: *HR* Buprenorphine HCl 8 MG TAB.SUBL SL SCH ×2 (08:45→21:26)
[2016-06-24] MEDS: Aspirin Enteric Coated 81 MG Tablet PO SCH (08:45)
[2016-06-24] MEDS ORDERED: NON-FORMULARY MEDICATION 1 EACH EACH (Buprenorphine Hcl/Naloxone Hcl [Suboxone 8 Mg-2 Mg S SL SCH (09:00)
[2016-06-24 10:11] LABS: Amphetamine Screen,Urine Positive ng/mL (Cutoff=1000); Barbiturate Screen,Urine Negative ng/mL (Cutoff=200); Benzodiazepines Screen,Urine Negative ng/mL (Cutoff=200); Cannabinoid Screen,Urine Negative ng/mL (Cutoff = 50); Cocaine Screen,Urine Negative ng/mL (Cutoff= 300); Opiate Screen,Urine Negative ng/mL (Cutoff=300); Phencyclidine Screen,Urine Negative ng/mL (Cutoff=25)
[2016-06-24] MEDS: 0.9 % Sodium Chloride 1,000 ML IVC SCH (12:17)
[2016-06-24] MEDS: Ibuprofen 400 MG TABLET PO PRN ×2 (14:52→20:22)
--- NOTE | 2016-06-24 15:33 | Electrocardiograph Report ---
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
--- NOTE | 2016-06-24 16:57 | Vascular/Endovasc Consult Note ---
Date of Encounter: 06/24/16 Time of Encounter: 16:30 Assessment and Plan (1) Carotid stenosis, bilateral Status: Chronic The pathophysiology and natural history of carotid stenosis was discussed with the patient and all questions were answered. The patients current symptoms are not consistent with CVA, TIA or amaurosis fugax. She has asymptomatic 60-79% bilateral internal carotid artery stenosis. She will need continued surveillence. She will have a repeat carotid duplex in 6 months. She was instructed to seek immediate medical attention if she develops signs or symptoms of CVA, TIA or amaurosis fugax. Aspirin daily is recommended. (2) Hoarseness of voice Status: Chronic The patient has hoarseness of her voice, her right sternocleidomastoid muscle appears atrophied. She has has tonsillectomy and adenoidectomy was well as a right mastoidectomy. Recommend Otolaryngology consultation as the patient may benfit fom larynogoscopy and further evaluation. (3) Weight loss, unintentional Status: Chronic The patient reports greater than 40 pound weight loss in the last 3-4 months. She was scheduled for EGD and [place] as an outpatient by Dr. Hernandez. (4) Malnutrition Status: Chronic (5) Tobacco abuse Status: Chronic The patient was counseled regarding smoking cessation. - History of Present Illness Consult date: 06/24/16 Requesting physician: Win Rodrigez Consult reason: Carotid stenosis Chief complaint: Carotid History of present illness: Ms. Villasenor is a 51 year old female who reports that until last year she was doing well. She states that she has lost 30-40 pounds unintentionally in the last few months. She has become progressively hoarse and has had dizziness, presyncope and syncope. She reports generalized weakness, malaise and gait instability. Her family reports that her symptoms have been rapid in onset and dramatic. During her evaluation she underwent a carotid duplex and was found to have significant stenosis. Vascular surgery was consulted for further evaluation. She denies any symptoms of CVA, TIA or amaurosis fugax. She denies chest pain or shortness of breath. Past Med Surg Social Fam HX - Past Medical History Medical history: CVA, GERD, hypertension, TIA, other Psychiatric history: no psych history - Past Surgical History Surgical History: appendectomy, , cholecystectomy - Social History Smoking Status: Current every day smoker Packs per day: 1 Smokeless Tobacco Status: No Alcohol use: none Drug use: none - Family History Father Living Status: Hx Family Cancer: Yes Daughter Living Status: Still Living Hx Family Cardiac Disorders: Yes Hx Family Respiratory Disorders: Yes Hx Family Cancer: Yes Hx Family GI Disorders: Yes Hx Family Endocrine Disorder: Yes Hx Family Neuromuscular Disorders: No Hx Family Neurologic Disorders: No Hx Family HEENT Disorders: Yes Hx Family Autoimmune Disorders: No Mother Living Status: Hx Family Cardiac Disorders: Yes Hx Family Cancer: Yes Medications and Allergies Buprenorphine HCl/Naloxone HCl [Suboxone 8 mg-2 mg Sl Film] 1 film SL BID [History] Aspirin [Lo-Dose Aspirin EC] 81 mg PO DAILY 06/23/16 [History] Metoprolol [Lopressor] 25 mg PO BID 06/23/16 [History] Omeprazole [PriLOSEC] 40 mg PO DAILY 06/23/16 [History] Buprenorphine HCl [Subutex] 8 mg SL BID tab.subl 06/25/16 [Rx] Lisinopril [Zestril] 5 mg PO DAILY #30 tablet 06/25/16 [Rx] Allergies acetaminophen [From Vicodin] Allergy (Verified 12/01/14 23:24) Hives hydrocodone [From Vicodin] Allergy (Verified 12/01/14 23:24) Hives naproxen [From Naprosyn] Allergy (Verified 12/01/14 23:24) Hives tramadol [From Ultram] Allergy (Verified 12/01/14 23:24) Hives muscle relaxers Allergy (Uncoded 12/01/14 23:24) Hives All Systems Review: A 10-system review of systems was performed and is negative for pertinent findings except as documented above in the HPI. - Constitutional Constitutional: no chills, no fever(s) - Cardiovascular Cardiovascular: no chest pain at rest, no chest pain with exertion, no dyspnea at rest, no dyspnea on exertion Exam Vital Signs, Last 4 Hours Temp Pulse Resp BP Pulse Ox 06/24/16 16:11 97.8 F 70 17 126/78 97 General: Present: Conversant, No Apparent Distress, Other (thin, appears frail) HEENT: Present: Trachea midline, Pupils equal Neck: Present: Other (right SCM atrophic). Absent: JVD, Lymphadenopathy Cardiac: Present: Reg Rate and Rhythm, Normal S1 and S2 Lungs: Present: Normal Breath Sounds, No Wheeze, Rales, Rhonchi Neuro: Present: Alert and responsive, No focal deficits noted, Motor nerves grossly intact, Sensory nerves grossly intact Abdomen: Present: Soft, Non-tender. Absent: Masses Vascular: Present: Normal capillary refill. Absent: Cyanosis, Edema Consult Discharge Plan - Plan Additional Instructions: Please increase the amount of water that you are drinking daily to avoid dehydration and dizziness. Your EGD and colonoscopy were today with Dr. Hernandez, please call their office to reschedule it. They are aware that you were in the hospital and too ill to make it to the test. Start taking a decreased dose of Lisinopril today. Please follow up with your primary care provider for routine blood pressure screening and evaluation. The blood pressure medication may have been making you dizzy. Please use caution and stand slowly. Referrals: Neil Rubio MD [Primary Care Provider] - Prescriptions: Lisinopril [Zestril] 5 mg PO DAILY #30 tablet
[2016-06-24] MEDS: Nicotine 14 MG PATCH.TD24 TD SCH (21:25)
[2016-06-25] MEDS: Ibuprofen 400 MG TABLET PO PRN (04:19)
[2016-06-25] MEDS: 0.9 % Sodium Chloride 1,000 ML IVC SCH (06:22)
[2016-06-25] MEDS: *HR* Buprenorphine HCl 8 MG TAB.SUBL SL SCH (07:51)
[2016-06-25] MEDS: Aspirin Enteric Coated 81 MG Tablet PO SCH (07:52)
[2016-06-25 11:50] VITALS: BP 154/78
--- NOTE | 2016-06-25 12:27 | Internal Med Progress Note ---
Date of Encounter: 06/25/16 Time of Encounter: 10:10 - Assessment and plan (1) Syncope Current Visit: No Status: Acute Assessment and plan: Pt has been having syncopal episodes for 2 months. Echo LVEF 60-65%,normal diastolic functions. Her head CT was negative , as was MRI head/brain on 06/24, NO acute intracranial abnormality, possible acute sinusitis, and dequela of minimal chronic microvascual ischemic changes. Today, pt denies dizziness and was able to get up and ambulate throughout department without difficulty. Labs are within normal limits, Hgb 11.4 today, however she has received IVF to rehydrate. Pt was seen by vascular surgery today, he does not feel that the carotid stenosis is contributing to her syncope, states that pt will need continued follow up for this. Hypotension appears to have resolved, pt is actually a bit hypertensive today 140s/80s. Pulse is wnl in the 70s and 80s. Pt denies chest pain at this time. As for her weight loss, pt is scheduled to have colonoscopy and EGD with Dr. Hernandez today. Will inform pt that she will need to call Dr. Hernandez to reschedule. Qualifiers: Syncope type: unspecified Qualified Code(s): R55 - Syncope and collapse (2) Chest pain Current Visit: Yes Status: Acute Assessment and plan: Patient denies CP today. Troponin negative x3 Pt denies chest pain today. RRR, s1s2, no murmurs, clicks or gallops noted. Pt able to ambulate throughout department without chest pain or sob. Qualifiers: Chest pain type: unspecified Qualified Code(s): R07.9 - Chest pain, unspecified (3) History of drug abuse Current Visit: Yes Status: Acute Assessment and plan: Pt currently takes Suboxone to "get off Perc 30s and Oxys". Pt is unsure of where she gets the rx other than "somewhere up by [place]". She states that her urine has amphetamines due to her cough medicine that she cannot name. Will continue Suboxone. (4) HTN (hypertension) Current Visit: No Status: Chronic Assessment and plan: Hypotension has resolved. Pt has been mildly hypertensive today. Will continue to monitor and continue Metoprolol 25mg bid. Qualifiers: Hypertension type: essential hypertension Qualified Code(s): I10 - Essential (primary) hypertension (5) Tobacco abuse Current Visit: Yes Status: Chronic Assessment and plan: Pt is not ready to stop smoking yet, will offer cessation education on discharge. - Time Spent With Patient less than 15 minutes - Subjective Interval history: This a.m. pt states that she feels fine and wants to go home. She reports occipital CANNON and post neck pain that she has had since arrival to hospital. Denies relief from Motrin. She did not verbalize complaint of CANNON to nurse today. She denies nausea, vomiting, chest, or abd pain, pain with palpation to epigastric area only. She also denies dizziness today. - Constitutional Vitals: Temp Pulse Resp BP Pulse Ox 99.0 F 72 16 154/78 97 06/25/16 11:49 06/25/16 11:49 06/25/16 11:49 06/25/16 11:49 06/25/16 11:49 General appearance: Present: cachectic, A&O X 3, pleasant, no acute distress - Head Head exam: Present: atraumatic, normal inspection - Eye Eye exam: Present: normal appearance, conjuntiva pink. Absent: nystagmus - ENT ENT exam: Present: mucous membranes moist, normal exam - Neck Neck exam general surgery: Present: normal inspection, tenderness. Absent: lymphadenopathy Additional comments: Pt reports that post neck muscles are tender to palpation. - Respiratory Respiratory exam: Present: CTAB. Absent: decreased breath sounds, rales, respiratory distress, rhonchi, stridor, wheezes - Cardiovascular Cardiovascular exam: Present: RRR, +S1, +S2. Absent: diastolic murmur, systolic murmur - GI/Abdominal GI/Abdominal exam: Present: normal bowel sounds. Absent: distended, guarding, tenderness - Extremities Exam Extremities exam: Present: full ROM, normal capillary refill, normal inspection , warm, radial pulses palpable and symetrical. Absent: calf tenderness, cyanotic, joint swelling, mottling, pedal edema, tenderness Additional comments: +2 pedal pulses merry. - Neurological Exam Neurological exam: Present: alert, oriented X3. Absent: facial droop, speech deficit Internal Medicine: Result - Labs CBC & Chem 7: 06/24/16 03:59 06/24/16 03:59 - Impressions Impressions Brain MRI 06/24/16 09:03 IMPRESSION: 1. No acute intracranial abnormality. 2. Sequela of minimal chronic microvascular ischemic changes. 3. Fritz paranasal sinus mucosal disease with bilateral maxillary sinus air-fluid levels compatible with acute sinusitis. D/ / Shahana Alvarez MD / Shahana Alvarez MD Interpreting Provider: Shahana Alvarez MD - VTE Reasons for not Prescribing Prophylaxis: Treatment not Indicated - Low risk for VTE Consult Discharge Plan - Plan Referrals: Neil Rubio MD [Primary Care Provider] -
--- NOTE | 2016-06-25 15:20 | Discharge Summary ---
Date of Encounter: 06/25/16 Time of Encounter: 15:15 - Discharge Diagnosis (1) Syncope Priority: Primary Status: Acute Comments: Pt denies syncope today. 2 month history of dizziness and syncope at home. Echo wnl today, as is head CT and MRI. Vitals have been stable and labs WNL. Pt will need to follow up with vascular surgery and PCP for follow up with carotid stenosis. Pt also reports 70 lb weight loss since January. Pt was scheduled for EGD and colonoscopy today, will need to reschedule that, as well. MOst likely syncope was multifactoral from hypovolemia, weight loss, hypotension and Suboxone use. Qualifiers: Syncope type: unspecified Qualified Code(s): R55 - Syncope and collapse (2) Chest pain Priority: Secondary Status: Acute Comments: Pt denies chest pain. trop negative x 3. Qualifiers: Chest pain type: unspecified Qualified Code(s): R07.9 - Chest pain, unspecified (3) History of drug abuse Priority: Secondary Status: Chronic Comments: Pt takes Suboxone. Will need to follow up with provider who prescribes that for refills and evaluation. Pt is unsure of his name, but states that he is somewhere near [place]. (4) HTN (hypertension) Priority: Primary Status: Chronic Comments: Pt will continue Metoprolol 25mg po bid and restart lisinopril 10mg po daily. Qualifiers: Hypertension type: essential hypertension Qualified Code(s): I10 - Essential (primary) hypertension (5) Tobacco abuse Priority: Secondary Status: Chronic Comments: Pt is not interested in cessation, however, we should give education on discharge. - Discharge Medications Prescriptions: Lisinopril [Zestril] 5 mg PO DAILY #30 tablet Home Medications: Buprenorphine HCl/Naloxone HCl [Suboxone 8 mg-2 mg Sl Film] 1 film SL BID [History] Aspirin [Lo-Dose Aspirin EC] 81 mg PO DAILY 06/23/16 [History] Metoprolol [Lopressor] 25 mg PO BID 06/23/16 [History] Omeprazole [PriLOSEC] 40 mg PO DAILY 06/23/16 [History] Buprenorphine HCl [Subutex] 8 mg SL BID tab.subl 06/25/16 [Rx] Lisinopril [Zestril] 5 mg PO DAILY #30 tablet 06/25/16 [Rx] Allergies/Adverse Reactions: Allergies acetaminophen [From Vicodin] Allergy (Verified 12/01/14 23:24) Hives hydrocodone [From Vicodin] Allergy (Verified 12/01/14 23:24) Hives naproxen [From Naprosyn] Allergy (Verified 12/01/14 23:24) Hives tramadol [From Ultram] Allergy (Verified 12/01/14 23:24) Hives muscle relaxers Allergy (Uncoded 12/01/14 23:24) Hives Procedures/tests Complete & Pending: Procedures Performed prior 72 hours Category Date Time Status MR head/brain wo con [MR] Routine MRI 06/24/16 09:03 Completed EKG [ECG 12 lead ECG] [ECG] Routine Y 06/24/16 15:34 Completed Date of admission: 06/23/16 17:12 Primary care physician: Neil Rubio MD Consults: 06/23/16 22:40 Consult to Vascular Surgery [CONS] Routine Consulting Provider: [facility] [place] Reason for Consult: syncope- cartoid stenosis Time Notified: 22:40 Call Completed: No Discharging clinician: Esther Vines Anticipated date of discharge: 06/25/16 - Patient Status Disposition: Home, Self-Care Condition: Good Functional capacity at discharge: independent ambulation Overall status at discharge: patient is progressing back to baseline - Discharge Instructions Follow Up With: Neil Rubio MD [Primary Care Provider] - Forms: Work/School Release Additional Instructions: Please increase the amount of water that you are drinking daily to avoid dehydration and dizziness. Your EGD and colonoscopy were today with Dr. Hernandez, please call their office to reschedule it. They are aware that you were in the hospital and too ill to make it to the test. Start taking a decreased dose of Lisinopril today. Please follow up with your primary care provider for routine blood pressure screening and evaluation. The blood pressure medication may have been making you dizzy. Please use caution and stand slowly. - Diet and Activity Activity: increase activity as tolerated Diet: advance to your usual diet Hospital course: Ms. Villasenor is a 51 year old female - Time Spent with Patient Total time spent providing and/or coordinating discharge services: - Constitutional Vitals: Temp Pulse Resp BP Pulse Ox 99.0 F 72 16 154/78 97 06/25/16 11:49 06/25/16 11:49 06/25/16 11:49 06/25/16 11:49 06/25/16 11:49 General appearance: Present: cachectic, A&O X 3, pleasant, no acute distress - VTE Reasons for not Prescribing Prophylaxis: Treatment not Indicated - Low risk for VTE
--- NOTE | 2016-06-25 15:48 | Electrocardiograph Report ---
[address] [address] Test Date: 2016-06-24 Pat Name: Rosy Villasenor Department: 113 Room: 3B13 Gender: F [employer]er: : 1965 Requested By: Win Rodrigez Order Number: [id number] Reading MD: Selma Ojeda Measurements Intervals [place] Rate: 70 P: 75 IN: 146 QRS: 62 QRSD: 88 T: 69 QT: 388 QTc: 409 Interpretive Statements SINUS RHYTHM Electronically Signed On 06-25-2016 15:46:44 EDT by Selma Ojeda
== END 2016-06-25 15:29 | disposition home or self-care (01) ==
LOC: 3BNU 13:42 → EMEROO 13:42 → SUATTDRO 17:12 → 3BNU 17:39
PROVIDERS: ADMIT Nurse Practitioner Acute Care; ATTEND Internal Medicine